=== PATIENT | male | born 1940 | race African-American/Black ===

== ENCOUNTER 2018-02-08 14:29 | Emergency (ER) | payer OTHER ==
[2018-02-08 14:49] VITALS: BMI 29.2
--- NOTE | 2018-02-08 14:51 | PDOC ---
Rapid Medical Evaluation Chief Complaint: Edema Time Seen by Provider: 02/08/18 14:45 Medical Evaluation: Allergies Allergy/AdvReac Type Severity Reaction Status Date / Time No Known Allergies Allergy Verified 02/08/18 14:44 02/08/18 14:46 Pt presents with one week of L lower leg swelling. States that the back of the leg hurts and the leg is numb. Denies recent travel, hx of prostate cancer. Exam: Pt ambulatory with cane. AAOx3 breathing easily. L leg grossly swollen with 3+ non-pitting edema to the knee. Orders: Labs, Duplex venous Pt. to proceed to ED for further eval PCP: Dr. Santos Discharge Disposition - Referrals Referrals: Laurence Santos MD [Primary Care Provider] - - Patient Instructions - Post Discharge Activity
[2018-02-08 15:49] LABS: BASO % 1.3 % (0-2.0); EOS % 3.9 % (0-4.5); HEMOGLOBIN 12.4 GM/dL (11.7-16.9); MCH 25.7 pg (25.7-33.7); MCHC 31.8 g/dl (32.0-35.9); MEAN PLT VOLUME 9.6 fl (7.5-11.1); MONO % 12.1 % (3.8-10.2); NEUT % 58.7 % (42.8-82.8); PLATELET COUNT 332 K/MM3 (134-434); RBC 4.82 M/mm3 (4.00-5.60); RDW 16.7 % (11.9-15.9); WHITE BLOOD COUNT 4.2 K/mm3 (4.0-10.0)
[2018-02-08 16:05] LABS: INR 1.09 (0.82-1.09); PROTHROMBIN TIME (PATIENT) 12.3 SEC (9.7-13.0)
[2018-02-08 16:27] LABS: ALBUMIN 3.8 g/dl (3.4-5.0); ANION GAP 6 (8-16); BILIRUBIN,TOTAL 0.5 mg/dL (0.2-1.0); BLOOD UREA NITROGEN 20 mg/dL (7-18); CALCIUM 9.1 mg/dL (8.5-10.1); CHLORIDE 104 mmol/L (98-107); CO2 29 mmol/L (21-32); CREATININE 1.1 mg/dL (0.7-1.3); GLUCOSE,RANDOM 103 mg/dL (74-106); POTASSIUM 4.3 mmol/L (3.5-5.1); SGOT/AST 19 U/L (15-37); SGPT/ALT 19 U/L (12-78); SODIUM 139 mmol/L (136-145)
[2018-02-08 16:29] LABS: ALK PHOS 82 U/L (45-117); N-TERMINAL BNP 288.94 pg/ml (5-450)
--- NOTE | 2018-02-08 16:31 | PDOC ---
History of Present Illness - General Chief Complaint: Edema Stated Complaint: LEFT FOOT PAIN Time Seen by Provider: 02/08/18 14:45 History Source: Patient Exam Limitations: No Limitations - History of Present Illness Initial Comments: 02/08/18 16:30 Patient is a 77M with history of blindness, elevated PSA (but no confirmed Prostate cancer), HTN, HLD, and DM here today complaining of left leg swelling that started two weeks ago. He denies trauma, fevers, chills, nausea, vomiting, chest pain and shortness of breath. Dr Santos, his pcp was contacted, as patient 's son said that he had prostate cancer, but per Dr Santos does not have any confirmed cancerous source. Past History - Past Medical History Allergies/Adverse Reactions: Allergies Allergy/AdvReac Type Severity Reaction Status Date / Time No Known Allergies Allergy Verified 02/08/18 14:44 Home Medications: Ambulatory Orders Labetalol HCl 200 mg PO BID 04/01/12 Simvastatin 20 mg PO DAILY 04/01/12 Amlodipine Besylate [Norvasc -] 10 mg PO DAILY #0 tablet 04/06/12 Hydralazine HCl 100 mg PO BID #0 tablet 04/06/12 Aspirin [ASA -] 81 mg PO DAILY 02/08/18 Glipizide 5 mg PO BID 02/08/18 Metformin HCl [Glucophage] 500 mg PO BID 02/08/18 Cancer: (Prostate CA) CVA: (2007) COPD: No DVT: No Diabetes: Yes HTN: Yes Hypercholesterolemia: Yes - Suicide/Smoking/Psychosocial Hx Smoking Status: No Smoking History: Never smoked Have you smoked in the past 12 months: No Number of Cigarettes Smoked Daily: 0 Information on smoking cessation initiated: No Hx Alcohol Use: No Drug/Substance Use Hx: No Substance Use Type: None Review of Systems - Review of Systems Comments:: 02/08/18 16:35 GENERAL/CONSTITUTIONAL: No fever or chills. No weakness. HEAD, EYES, EARS, NOSE AND THROAT: No change in vision. No ear pain or discharge. No sore throat. CARDIOVASCULAR: No chest pain or shortness of breath RESPIRATORY: No cough, wheezing, or hemoptysis. GASTROINTESTINAL: No nausea, vomiting, diarrhea or constipation. GENITOURINARY: No dysuria, frequency, or change in urination. MUSCULOSKELETAL: +L leg edema. No neck or back pain. SKIN: No rash NEUROLOGIC: No headache, vertigo, loss of consciousness, or change in strength/ sensation. ENDOCRINE: No increased thirst. No abnormal weight change HEMATOLOGIC/LYMPHATIC: No anemia, easy bleeding, or history of blood clots. ALLERGIC/IMMUNOLOGIC: No hives or skin allergy. *Physical Exam - Vital Signs Last Vital Signs Temp Pulse Resp BP Pulse Ox 98.3 F 74 16 183/92 99 02/08/18 14:45 02/08/18 14:45 02/08/18 14:45 02/08/18 14:45 02/08/18 14:45 - Physical Exam Comments: 02/08/18 16:34 GENERAL: Awake, alert, and fully oriented, in no acute distress HEAD: No signs of trauma, normocephalic, atraumatic EYES: PERRLA, EOMI, sclera anicteric, conjunctiva clear ENT: Auricles normal inspection, hearing grossly normal, nares patent, oropharynx clear without exudates. Moist mucosa NECK: Normal ROM, supple, no lymphadenopathy, JVD, or masses LUNGS: No distress, speaks full sentences, clear to auscultation bilaterally HEART: Regular rate and rhythm, normal S1 and S2, no murmurs, rubs or gallops, peripheral pulses normal and equal bilaterally. ABDOMEN: Soft, nontender, normoactive bowel sounds. No guarding, no rebound. No masses EXTREMITIES: Normal inspection, Normal range of motion, 3+ pitting edema in left extremity. No clubbing or cyanosis. NEUROLOGICAL: Cranial nerves II through XII grossly intact. Normal speech, no focal sensorimotor deficits SKIN: Warm, Dry, normal turgor, no rashes or lesions noted. ED Treatment Course - LABORATORY CBC & Chemistry Diagram: 02/08/18 15:42 02/08/18 15:42 - ADDITIONAL ORDERS Additional order review: Laboratory Results 02/08/18 15:42 PT with INR 12.30 INR 1.09 02/08/18 15:42 RBC 4.82 MCV 81.0 MCHC 31.8 L RDW 16.7 H MPV 9.6 D Neutrophils % 58.7 D Lymphocytes % 24.0 D Monocytes % 12.1 H Eosinophils % 3.9 D Basophils % 1.3 D Medical Decision Making - Medical Decision Making 02/08/18 16:36 Patient is 77M here today with left leg swelling. Very likely to be DVT. No complaints of chest pain or shortness of breath. Normal vital signs. Will evaluate with basic labs, cxr, ekg. Patient has significant cancer risk as reason for provocation of DVT. 02/08/18 16:59 DVT US negative. Labs wnl. Will discharge home with instructions to follow up in 3-4 days for second DVT study. *DC/Admit/Observation/Transfer Diagnosis at time of Disposition: Left leg swelling - Discharge Dispostion Disposition: HOME Condition at time of disposition: Good Decision to Admit order: No - Referrals Referrals: Laurence Santos MD [Primary Care Provider] - - Patient Instructions Additional Instructions: You were seen today in the ED for leg swelling and evaluated for a blood clot. We did not find a blood clot at this time. Please return to the ED in 3-4 days to have a repeat ultrasound. Please follow up with your primary care physician in the next week. - Post Discharge Activity
[2018-02-08 17:24] VITALS: BP 169/90; PULSE 72; TEMP 98.7
== END 2018-02-08 17:24 | disposition home or self-care (01) ==
LOC: JER 14:29
DX: R60.0 Localized edema (principal); I10 Essential (primary) hypertension; E78.00 Pure hypercholesterolemia, unspecified; E11.9 Type 2 diabetes mellitus without complications; Z79.84 Long term (current) use of oral hypoglycemic drugs; H54.7 Unspecified visual loss; R97.20 Elevated prostate specific antigen [PSA]; Z79.82 Long term (current) use of aspirin; Z86.73 Personal history of transient ischemic attack (TIA), and cerebral infarction without residual deficits
CPT/HCPCS: 36415; 80053; 83880; 85025; 85610; 93971-TC; 99283-25

== ENCOUNTER 2018-02-14 08:59 | Observation (INO) | payer OTHER ==
[2018-02-14 10:22] LABS: BASO % 0.5 % (0-2.0); EOS % 0.6 % (0-4.5); HEMATOCRIT 38.6 % (35.4-49); HEMOGLOBIN 12.4 GM/dL (11.7-16.9); LYMPH % 9.1 % (8-40); MCH 25.8 pg (25.7-33.7); MCHC 32.2 g/dl (32.0-35.9); MEAN PLT VOLUME 9.6 fl (7.5-11.1); NEUT % 81.8 % (42.8-82.8); PLATELET COUNT 232 K/MM3 (134-434); RBC 4.82 M/mm3 (4.00-5.60)
--- NOTE | 2018-02-14 10:43 | PDOC ---
Attending Attestation - HPI HPI: 02/14/18 10:43 The patient is a 77 year old male with a significant PMH of blindness, prostate ca(20 years), hypertension, hyperlipidemia, and DM who presents to the emergency department with significant left leg swelling for 2 weeks. The patient 's reports that the patient was recently seen in the ED about 1 week ago for similar complaints. The patient reports that when he was seen in the ED prior his leg swelling was down at his feet. Since then, the patient reports that the swelling has spread up his left leg to his groin. The patient's reports that the patient had difficulty walking out of the house this morning and had to be brought in by EMS. the patient denies any numbness, weakness or tingling sensation. He denies any fever, chills, nausea, vomit, diarrhea, constipation and urinary symptoms. He denies any chest pain, shortness of breath , headache and dizziness. The patient denies any other complaints. PCP: Dr. Santos Documentation prepared by Laura Mckeon, acting as medical services assistant for Taylor Nelson MD. - Physicial Exam PE: 02/14/18 10:45 GENERAL: Awake, alert, and fully oriented, in no acute distress HEAD: No signs of trauma EYES: PERRLA, EOMI, sclera anicteric, conjunctiva clear ENT: Auricles normal inspection, hearing grossly normal, nares patent, oropharynx clear without exudates. Moist mucosa NECK: Normal ROM, supple, no lymphadenopathy, JVD, or masses LUNGS: Breath sounds equal, clear to auscultation bilaterally. No wheezes, and no crackles HEART: Regular rate and rhythm, normal S1 and S2, no murmurs, rubs or gallops ABDOMEN: Soft, nontender, normoactive bowel sounds. No guarding, no rebound. No masses EXTREMITIES: (+)left lower extremity has 1+ pitting edema to left thigh with erythema and warmth. 2+ dp pulses bilaterally. Normal range of motion, no edema. No clubbing or cyanosis. No cords, erythema, or tenderness NEUROLOGICAL: Cranial nerves II through XII grossly intact. Normal speech, normal gait SKIN: Warm, Dry, normal turgor, no rashes or lesions noted. <Laura Mckeon - Last Filed: 02/14/18 10:43> - Resident Resident Name: Lauri Davis - ED Attending Attestation I have performed the following: I have examined & evaluated the patient, The case was reviewed & discussed with the resident, I agree w/resident's findings & plan, Exceptions are as noted - Medical Decision Making 02/14/18 12:11 77 yo male h/o prostatic enlargement, cancer left leg swelling x 2 weeks. negative doppler 1 week ago here with persistant swellling. no f/c no cp no sob. no h/o pe or dvt. differential: dvt that propogated from calf vein dvt, lymphatic enlargement , cellulitis, plan labs doppler. plan ct a/p to evalute prostate, possible enlargment , mets or node involvement. will d/w dr nichols us rads positive for extensive DVT left leg. cecilia treat with lovenox or heparin. d/w simone, told to admit to hospitalist. 02/14/18 14:03 d/w pt family. daughter concerned. pt unable to walk due to pain. has disability of blindness. will observe overnight for anticoagulation pt eval and social work / case reviewer involvement for safe discharge. social work paged awaiting call back <Taylor Nelson - Last Filed: 02/14/18 14:04>
[2018-02-14 10:50] LABS: ALBUMIN 3.4 g/dl (3.4-5.0); ANION GAP 9 (8-16); BILIRUBIN,TOTAL 0.9 mg/dL (0.2-1.0); BLOOD UREA NITROGEN 27 mg/dL (7-18); CALCIUM 8.8 mg/dL (8.5-10.1); CHLORIDE 103 mmol/L (98-107); CO2 26 mmol/L (21-32); CREATININE 1.3 mg/dL (0.7-1.3); GLUCOSE,RANDOM 112 mg/dL (74-106); SGPT/ALT 19 U/L (12-78); SODIUM 138 mmol/L (136-145)
[2018-02-14 10:52] LABS: ALK PHOS 72 U/L (45-117)
[2018-02-14 11:06] LABS: POTASSIUM 4.9 mmol/L (3.5-5.1); SGOT/AST 36 U/L (15-37)
[2018-02-14] MEDS ORDERED: ENOXAPARIN NA (PORCINE) 80 MG/0.8 ML DISP.SYRIN SQ ONE ×2 (14:00→14:11)
[2018-02-14] MEDS ORDERED: ACETAMINOPHEN 1000 MG/100 ML VIAL (NON FORMULARY) IVPB ONE (14:01)
[2018-02-14] MEDS ORDERED: ACETAMINOPHEN INJECTION 100 ML IVPB ONE (14:11)
--- NOTE | 2018-02-14 14:42 | HP ---
Admitting History and Physical - Admission Chief Complaint: LLE swelling and pain History of Present Illness: This is a 77 year old male with pmhx of HTN, HLD, DM II, prostate ca (~20 years ago), blindness d/t glaucoma presents to the ED with worsening left lower ext swelling. One week ago pt presented to the ED for same complaints, Duplex was negative at that time. Today, groin tenderness and swelling down his leg with unstable gait prompted to call EMS. The patient denies sob, chest pain, fever, chills, difficulty urinating, or bowel movements. He walks with a cane, refuses to go to a long term. The results of his CTAP regarding metastases likely from his prostate ca, malignancy work up biopsy and treatment, pt declines. History Source: Patient, Family Member Limitations to Obtaining History: No Limitations - Past Medical History Cardiovascular: Yes: HTN, Hyperlipdemia Heme/Onc: Yes: Cancer (prostate +20 years) Endocrine: Yes: Diabetes Mellitus - Smoking History Smoking history: Never smoked Have you smoked in the past 12 months: No Aproximately how many cigarettes per day: 0 - Alcohol/Substance Use Hx Alcohol Use: No History of Substance Use: reports: None - Social History Usual Living Arrangement: Yes: With Spouse Occupation: retired cabinate maker History of Recent Travel: No Home Medications - Allergies Allergies/Adverse Reactions: Allergies Allergy/AdvReac Type Severity Reaction Status Date / Time No Known Allergies Allergy Verified 02/14/18 09:00 - Home Medications Home Medications: Ambulatory Orders Labetalol HCl 200 mg PO BID 04/01/12 Simvastatin 20 mg PO DAILY 04/01/12 Amlodipine Besylate [Norvasc -] 10 mg PO DAILY #0 tablet 04/06/12 Hydralazine HCl 100 mg PO BID #0 tablet 04/06/12 Aspirin [ASA -] 81 mg PO DAILY 02/08/18 Glipizide 5 mg PO BID 02/08/18 Metformin HCl [Glucophage] 500 mg PO BID 02/08/18 Review of Systems - Review of Systems Constitutional: reports: No Symptoms Eyes: reports: Other (blind) HENT: reports: No Symptoms Neck: reports: No Symptoms Cardiovascular: reports: No Symptoms Respiratory: reports: No Symptoms Gastrointestinal: reports: No Symptoms Genitourinary: reports: No Symptoms Musculoskeletal: reports: Extremity Pain (left) Integumentary: reports: No Symptoms Neurological: reports: Unsteady Gait Endocrine: reports: No Symptoms Hematology/Lymphatic: reports: No Symptoms Psychiatric: reports: No Symptoms Physical Examination Vital Signs: Vital Signs Temperature 99.6 F 02/14/18 13:55 Pulse Rate 90 02/14/18 13:55 Respiratory Rate 18 02/14/18 13:55 Blood Pressure 131/70 02/14/18 13:55 O2 Sat by Pulse Oximetry (%) 98 02/14/18 13:55 Constitutional: Yes: Calm Eyes: Yes: Other (blind) HENT: Yes: WNL Neck: Yes: WNL Cardiovascular: Yes: Regular Rate and Rhythm, S1, S2 Respiratory: Yes: Regular, CTA Bilaterally Gastrointestinal: Yes: Normal Bowel Sounds, Soft Extremities: Yes: Other (lle swelling, calf tenerness, tight, no erythema, mild warm) Edema: Yes Edema: LLE: 2+ Neurological: Yes: Alert, Oriented, Cran Nerves II-XII Intact Psychiatric: Yes: Alert, Oriented Labs: CBC, BMP 02/14/18 10:13 02/14/18 10:13 Imaging - Results Cat Scan: Report Reviewed Problem List - Problems (1) DVT (deep venous thrombosis) Code(s): I82.409 - ACUTE EMBOLISM AND THOMBOS UNSP DEEP VN UNSP LOWER EXTREMITY (2) HTN (hypertension) Code(s): I10 - ESSENTIAL (PRIMARY) HYPERTENSION (3) Diabetes mellitus Code(s): E11.9 - TYPE 2 DIABETES MELLITUS WITHOUT COMPLICATIONS (4) Blind in both eyes Code(s): H54.3 - UNQUALIFIED VISUAL LOSS, BOTH EYES (5) HLD (hyperlipidemia) Code(s): E78.5 - HYPERLIPIDEMIA, UNSPECIFIED (6) Left leg swelling Code(s): M79.89 - OTHER SPECIFIED SOFT TISSUE DISORDERS Assessment/Plan Assessment: 77 year old male presented with worsening left lower ext swelling Plan: 1. Acute extensive LLE DVT - Left common femoral - Start lovenox 80mg BID - PT eval - Hematology, vascular consulted, possible for eliquis? 2. hx of prostate ca with metatases - CTAP shows extensive retroperitoneal lymphadenopathy, b/l adrenal nodules, pelvic adenopathy - Pt declines further work up/treatment - Hematology consulted for AC re DVT 3. HTN - Norvasc, labetalol, hydralazine 4. DM II - ISS, BGM ACHS 5. HLD - Statin Visit type - Emergency Visit Emergency Visit: Yes Care time: The patient presented to the Emergency Department on the above date and was hospitalized for further evaluation of their emergent condition. - New Patient This patient is new to me today: Yes Date on this admission: 02/14/18 - Critical Care Critical Care patient: No Hospitalist Screening - Colonoscopy Questionnaire Colonoscopy Questionnaire: Colonoscopy Questionnaire - Patient: 50 - 75 years old and never had a screening colonoscopy: Unknown History of colon or rectal polyps, or CA: Unknown History of IBD, Crohn's disease or UC: Unknown History of abdominal radiation therapy as a child: Unknown - Relative: 1 with colon or rectal CA, or polyps at age 60 or younger: Unknown Colon or rectal CA diagnosed at age 45 or younger: Unknown Multiple relatives with colon or rectal CA: Unknown - Outcome: Screening Result: Negative Screen
--- NOTE | 2018-02-14 14:52 | PDOC ---
History of Present Illness - General Chief Complaint: Edema Stated Complaint: LT LEG SWELLING (PCP SENT) Time Seen by Provider: 02/14/18 09:49 History Source: Patient, Family (daughter ) Exam Limitations: No Limitations - History of Present Illness Initial Comments: 02/14/18 14:42 77 y/o male with a PMH of HTN, hypercholesteralemia, diabetes and prostatic ca ( 20+ years, not treated) presents to the ED for a 2 week history of LLE swelling and pain. Patient states the swelling and pain have progressively gotten worse and now affects the entire LLE. Pt came to the ED on February 08 for the same complaint. Doppler was negative at the time. Pt spoke with his PCP, Dr. Alvarez, over the phone today and was advised to come back to the hospital for further workup. Patient denies SOB, CP, fevers/chills, abdominal pain, changes in bowel or bladder habits. Timing/Duration: other (2 weeks) Severity: moderate Associated Symptoms: reports: denies symptoms. denies: chest pain, cough, fever /chills, shortness of breath Past History - Past Medical History Allergies/Adverse Reactions: Allergies Allergy/AdvReac Type Severity Reaction Status Date / Time No Known Allergies Allergy Verified 02/14/18 09:00 Home Medications: Ambulatory Orders Labetalol HCl 200 mg PO BID 04/01/12 Simvastatin 20 mg PO DAILY 04/01/12 Amlodipine Besylate [Norvasc -] 10 mg PO DAILY #0 tablet 04/06/12 Hydralazine HCl 100 mg PO BID #0 tablet 04/06/12 Aspirin [ASA -] 81 mg PO DAILY 02/08/18 Glipizide 5 mg PO BID 02/08/18 Metformin HCl [Glucophage] 500 mg PO BID 02/08/18 Cancer: (Prostate CA) CVA: (2007) COPD: No DVT: No Diabetes: Yes HTN: Yes Hypercholesterolemia: Yes - Immunization History Immunization Up to Date: Yes - Suicide/Smoking/Psychosocial Hx Smoking Status: No Smoking History: Never smoked Have you smoked in the past 12 months: No Number of Cigarettes Smoked Daily: 0 Hx Alcohol Use: No Drug/Substance Use Hx: No Substance Use Type: None Review of Systems - Review of Systems Comments:: 02/14/18 14:53 General: No fevers or chills or weakness Cardio: no chest pain or SOB Resp: respiratory distress, No cough, wheezing, or hemoptysis Gastro: No nausea, vomiting, diarrhea or constipation Genitourinary: no dysuria, frequency or change in urination Skin: no rash Neuro: no SHAH, LOC, or changes in strength or sensation Irineo/Lymph: no anemia, easy bleeding or history of blood clots *Physical Exam - Vital Signs Last Vital Signs Temp Pulse Resp BP Pulse Ox 99.6 F 90 18 131/70 98 02/14/18 13:55 02/14/18 13:55 02/14/18 13:55 02/14/18 13:55 02/14/18 13:55 - Physical Exam Comments: 02/14/18 15:03 General: Awake, alert and fully oriented, no acute distress Neuro: CN 2-12 intact Normal speech Head: No signs of trauma Lungs: Breath sounds equal, clear to auscultation bilaterally Heart: regular rate and rhythm, normal S1 and S2, no murmurs Abdomen: Soft, non tender, normoactive sound. No masses, guarding, rebound or rigidity Extremities: Diffuse LLE pitting edema. Tender to palpation. doralis pedis pulse palpated bilaterally Skin: No erythema or warmth unilaterally ED Treatment Course - LABORATORY CBC & Chemistry Diagram: 02/14/18 10:13 02/14/18 10:13 - ADDITIONAL ORDERS Additional order review: Laboratory Results 02/14/18 10:13 Sodium 138 Potassium 4.9 Chloride 103 Carbon Dioxide 26 Anion Gap 9 BUN 27 H Creatinine 1.3 Creat Clearance w eGFR 53.39 Random Glucose 112 H Calcium 8.8 Total Bilirubin 0.9 AST 36 D ALT 19 Alkaline Phosphatase 72 D B-Natriuretic Peptide 278.20 Total Protein 8.0 Albumin 3.4 02/14/18 10:13 RBC 4.82 MCV 80.0 MCHC 32.2 RDW 16.0 H MPV 9.6 Neutrophils % 81.8 D Lymphocytes % 9.1 D Monocytes % 8.0 Eosinophils % 0.6 D Basophils % 0.5 - RADIOLOGY Radiology Studies Ordered: Category Date Time Status ABDOMEN & PELVIS CT W/O CONTR [CT] Stat CT Scan 02/14/18 10:41 Completed - Medications Given in the ED: ED Medications Discontinued Medications Generic Name Dose Route Start Last Admin Trade Name Freq PRN Reason Stop Dose Admin Acetaminophen 1,000 mg 02/14/18 14:01 02/14/18 14:12 Ofirmev Injection - IVPB 02/14/18 14:02 1,000 mg ONCE ONE Administration Enoxaparin Sodium 80 mg 02/14/18 14:00 02/14/18 14:12 Lovenox - SQ 02/14/18 14:01 80 mg ONCE ONE Administration - Consult/PCP Time Called: 13:00 Medical Decision Making - Medical Decision Making 02/14/18 16:04 77 year old male presents with LLE pain and swelling for a 2 week duration. Doppler shows extensive DVT from the popliteal to the common femoral vein. Denies f/c/n/v SOB, CP. No prior history of PE or DVT. Spoke with Dr. Alvarez and agrees to admit pt to Hospitalist. Lovenox treatment indefinitely. Discussed pelvic and abdominal CT with patient, understands that it most likely points to metastasis of untreated prostatic CA. At the moment he is denying treatment options but spoke with Dr. Clinton from oncology over the phone who agrees to see the patient. *DC/Admit/Observation/Transfer Diagnosis at time of Disposition: DVT (deep venous thrombosis) Qualifiers: DVT location: lower extremity Affected thrombotic vein of extremity: femoral Chronicity: acute Laterality: left Qualified Code(s): I82.412 - Acute embolism and thrombosis of left femoral vein - Discharge Dispostion Condition at time of disposition: Good Decision to Admit order: Yes Decision to Admit order Date/Time: 02/14/18 17:01 77 y/o male found to have extensive LLE DVT. - Referrals - Patient Instructions - Post Discharge Activity
[2018-02-14] MEDS: INSULIN SLIDING SCALE (NOVOLOG) 1 VIAL SQ SCH ×2 (16:34→21:37)
[2018-02-14 18:49] VITALS: BMI 29.6
--- NOTE | 2018-02-14 20:19 | CONSULT ---
<Winifred Cowan - Last Filed: 02/14/18 20:26> - Consultation REQUESTING PROVIDER: CONSULT REQUEST: We have been asked to surgically evaluate this patient for Left lower extremity DVT PCP:Dayami Pimentel HISTORY OF PRESENT ILLNESS: The patient is a 77 yo male who returned to the ER today for an increase in left leg pain and swelling. He was seen on 02/08/2018 at [facility] and had a negative DVT study. His family brought him back for further evaluation as recommended. He has a history of prostate cancer 20 years ago and received limited treatment because he didn't like the therapy. The patient denies any SOB, CP today. He thinks that his leg feels less "tight" swollen since admission. No parasthesia and the throbbing in his leg has subsided. PMHx: HTN, Diabetes PSHx: denies Home Medications Medication Instructions Recorded Labetalol HCl 200 mg PO BID 04/01/12 Simvastatin 20 mg PO DAILY 04/01/12 Amlodipine Besylate [Norvasc -] 10 mg PO DAILY #0 tablet 04/06/12 Hydralazine HCl 100 mg PO BID #0 tablet 04/06/12 Aspirin [ASA -] 81 mg PO DAILY 02/08/18 Glipizide 5 mg PO BID 02/08/18 Metformin HCl [Glucophage] 500 mg PO BID 02/08/18 Allergies Allergy/AdvReac Type Severity Reaction Status Date / Time No Known Allergies Allergy Verified 02/14/18 09:00 REVIEW OF SYSTEMS: CONSTITUTIONAL: Absent: fever, chills CARDIOVASCULAR: Absent: chest pain, syncope, palpitations Present:peripheral edema RESPIRATORY: Absent: cough, shortness of breath, dyspnea with exertion GASTROINTESTINAL: Absent: abdominal pain, abdominal distension, nausea, vomiting No history of colonoscopy-denies bloody bowel movments GENITOURINARY: Absent: dysuria, hematuria, flank pain SKIN: Absent: ulcer to lower ext MUSCULOSKELETAL: Absent: myalgia, arthralgia HEMATOLOGIC/IMMUNOLOGIC: Absent: easy bleeding, easy bruising NEUROLOGIC: Absent: headache, focal weakness, paresthesias, dizziness, unsteady gait, seizure, mental status changes, bladder or bowel incontinence PSYCHIATRIC: Absent: anxiety, depression, suicidal or homicidal ideation, hallucinations. PHYSICAL EXAM: GENERAL: Awake, alert, and fully oriented, in no acute distress. HEAD: Normal with no signs of trauma. ABDOMEN: Soft, nontender, not distended MUSCULOSKELETAL: Normal ROM at all joints. No bony deformities or tenderness. LOWER EXTREMITIES: 2+ pulses, warm, well-perfused. Left leg with calf tenderness and +2 pitting edema from the foot to his thigh/soft. NEUROLOGICAL: Normal speech, gait not observed. PSYCH: Cooperative. Good eye contact. Appropriate mood and affect. SKIN: Warm, dry, normal turgor, lesions noted to his lower ext Vital Signs Temperature 98.5 F 02/14/18 18:42 Pulse Rate 76 02/14/18 18:42 Respiratory Rate 18 02/14/18 19:00 Blood Pressure 138/86 02/14/18 18:42 O2 Sat by Pulse Oximetry (%) 98 02/14/18 19:00 Lab Results WBC 9.0 K/mm3 (4.0-10.0) 02/14/18 10:13 RBC 4.82 M/mm3 (4.00-5.60) 02/14/18 10:13 Hgb 12.4 GM/dL (11.7-16.9) 02/14/18 10:13 Hct 38.6 % (35.4-49) 02/14/18 10:13 MCV 80.0 fl (80-96) 02/14/18 10:13 MCHC 32.2 g/dl (32.0-35.9) 02/14/18 10:13 RDW 16.0 % (11.9-15.9) H 02/14/18 10:13 Plt Count 232 K/MM3 (134-434) D 02/14/18 10:13 Sodium 138 mmol/L (136-145) 02/14/18 10:13 Potassium 4.9 mmol/L (3.5-5.1) 02/14/18 10:13 Chloride 103 mmol/L (98-107) 02/14/18 10:13 Carbon Dioxide 26 mmol/L (21-32) 02/14/18 10:13 Anion Gap 9 (8-16) 02/14/18 10:13 BUN 27 mg/dL (7-18) H 02/14/18 10:13 Creatinine 1.3 mg/dL (0.7-1.3) 02/14/18 10:13 Random Glucose 112 mg/dL (74-106) H 02/14/18 10:13 Calcium 8.8 mg/dL (8.5-10.1) 02/14/18 10:13 DVT 02/08-No evidenced of clot DVT 02/14-clot in the Left CFV, popliteal and GSV CT ABD/Pevis 02/14: Retroperitoneal lymphadenpathy, pelivc LAD causing right hydronephrosis Problem List - Problems (1) DVT (deep venous thrombosis) Assessment/Plan: The patient is a 77 yo male with a history of prostate cancer and evidence of metastatic disease on CT scan. Now with acute LLE DVT. The medical team has begun his DVT treatment with lovenox 80mg BID, recommend to transition to oral AC as per hem/onc and his medical team. Continue lovenox therapy if further workup regarding his metastatic disease is agreeded upon by the patient and advised by Hem/Onc. D/w Dr. Bunn and he agress with the above plan. There is no need for surgical intervention/thrombolysis at this time unless he is unable to tolerate anticoagulation or swelling symptoms progress. Elevate his Left lower extremity at all times to decrease swelling. Code(s): I82.409 - ACUTE EMBOLISM AND THOMBOS UNSP DEEP VN UNSP LOWER EXTREMITY Qualifiers: DVT location: lower extremity Affected thrombotic vein of extremity: femoral Chronicity: acute Laterality: left Qualified Code(s): I82.412 - Acute embolism and thrombosis of left femoral vein <Campos Bunn - Last Filed: 02/21/18 08:09> - Consultation REQUESTING PROVIDER: CONSULT REQUEST: We have been asked to surgically evaluate this patient for ( specify). PCP:Miah Grimm NP HISTORY OF PRESENT ILLNESS: PMHx: PSHx: Home Medications Medication Instructions Recorded Labetalol HCl 200 mg PO BID 04/01/12 Simvastatin 20 mg PO DAILY 04/01/12 Amlodipine Besylate [Norvasc -] 10 mg PO DAILY #0 tablet 04/06/12 Hydralazine HCl 100 mg PO BID #0 tablet 04/06/12 Glipizide 5 mg PO BID 02/08/18 Metformin HCl [Glucophage] 500 mg PO BID 02/08/18 Apixaban [Eliquis -] 5 mg PO BID #60 tablet 02/15/18 Apixaban [Eliquis -] 5 mg PO BID #60 tablet 02/17/18 Docusate Sodium [Colace -] 100 mg PO TID capsule 02/17/18 Allergies Allergy/AdvReac Type Severity Reaction Status Date / Time No Known Allergies Allergy Verified 02/14/18 09:00 REVIEW OF SYSTEMS: CONSTITUTIONAL: Absent: fever, chills, diaphoresis, generalized weakness, malaise, loss of appetite, weight change CARDIOVASCULAR: Absent: chest pain, syncope, palpitations, irregular heart rate, lightheadedness , peripheral edema RESPIRATORY: Absent: cough, shortness of breath, dyspnea with exertion, wheezing, stridor, hemoptysis GASTROINTESTINAL: Absent: abdominal pain, abdominal distension, nausea, vomiting, diarrhea, constipation, melena, hematochezia GENITOURINARY: Absent: dysuria, frequency, urgency, hesitancy, hematuria, flank pain, genital pain MUSCULOSKELETAL: Absent: myalgia, arthralgia, joint swelling, back pain, neck pain SKIN: Absent: rash, itching, pallor HEMATOLOGIC/IMMUNOLOGIC: Absent: easy bleeding, easy bruising, lymphadenopathy NEUROLOGIC: Absent: headache, focal weakness, paresthesias, dizziness, unsteady gait, seizure, mental status changes, bladder or bowel incontinence PSYCHIATRIC: Absent: anxiety, depression, suicidal or homicidal ideation, hallucinations. PHYSICAL EXAM: GENERAL: Awake, alert, and fully oriented, in no acute distress. HEAD: Normal with no signs of trauma. EYES: PERRL, sclera anicteric, conjunctiva clear. NECK: Normal ROM, supple without lymphadenopathy, JVD, or masses. LUNGS: Clear to auscultation bilat anteriorly. No wheezes, and no crackles. No accessory muscle use. HEART: Regular rate and rhythm. No murmurs ABDOMEN: Soft, nontender, not distended, normoactive bowel sounds, no guarding, no rebound, no masses. No organomegaly. MUSCULOSKELETAL: Normal ROM at all joints. No bony deformities or tenderness. No CVA tenderness. UPPER EXTREMITIES: 2+ pulses, warm, well-perfused. No cyanosis. Cap refill <2 seconds. No peripheral edema. LOWER EXTREMITIES: 2+ pulses, warm, well-perfused. No calf tenderness. No peripheral edema. NEUROLOGICAL: Normal speech, gait not observed. PSYCH: Cooperative. Good eye contact. Appropriate mood and affect. SKIN: Warm, dry, normal turgor, no rashes or lesions noted. Vital Signs Temperature 98.6 F 02/17/18 10:06 Pulse Rate 68 02/17/18 10:06 Respiratory Rate 20 02/17/18 10:06 Blood Pressure 157/86 02/17/18 10:06 O2 Sat by Pulse Oximetry (%) 97 02/17/18 03:00 Lab Results WBC 6.5 K/mm3 (4.0-10.0) 02/15/18 06:25 RBC 4.44 M/mm3 (4.00-5.60) 02/15/18 06:25 Hgb 11.5 GM/dL (11.7-16.9) L 02/15/18 06:25 Hct 35.2 % (35.4-49) L 02/15/18 06:25 MCV 79.3 fl (80-96) L 02/15/18 06:25 MCHC 32.6 g/dl (32.0-35.9) 02/15/18 06:25 RDW 16.2 % (11.9-15.9) H 02/15/18 06:25 Plt Count 214 K/MM3 (134-434) 02/15/18 06:25 Sodium 141 mmol/L (136-145) 02/15/18 06:25 Potassium 3.9 mmol/L (3.5-5.1) D 02/15/18 06:25 Chloride 106 mmol/L (98-107) 02/15/18 06:25 Carbon Dioxide 25 mmol/L (21-32) 02/15/18 06:25 Anion Gap 10 (8-16) 02/15/18 06:25 BUN 23 mg/dL (7-18) H 02/15/18 06:25 Creatinine 1.0 mg/dL (0.7-1.3) 02/15/18 06:25 Random Glucose 82 mg/dL (74-106) D 02/15/18 06:25 Calcium 8.4 mg/dL (8.5-10.1) L 02/15/18 06:25 Case discussed in detail. Plans for anticoagulation. No surgical intervention indicated at this time.
[2018-02-14] MEDS: hydrALAZINE HCL 50 MG TABLET (FP) PO SCH (21:37)
[2018-02-14] MEDS: ATORVASTATIN CA 10 MG TABLET (FP) PO SCH (21:37)
[2018-02-14] MEDS: LABETALOL HCL 200 MG TABLET (FP) PO SCH (21:37)
[2018-02-15] MEDS: ACETAMINOPHEN 325 MG TABLET (FP) PO PRN ×2 (02:19→19:32)
[2018-02-15] MEDS: INSULIN SLIDING SCALE (NOVOLOG) 1 VIAL SQ SCH ×4 (06:13→21:38)
[2018-02-15 07:21] LABS: BASO % 0.4 % (0-2.0); EOS % 0.6 % (0-4.5); HEMATOCRIT 35.2 % (35.4-49); HEMOGLOBIN 11.5 GM/dL (11.7-16.9); LYMPH % 13.8 % (8-40); MCH 25.9 pg (25.7-33.7); MCHC 32.6 g/dl (32.0-35.9); MEAN CELL VOLUME 79.3 fl (80-96); MEAN PLT VOLUME 9.9 fl (7.5-11.1); MONO % 12.2 % (3.8-10.2); PLATELET COUNT 214 K/MM3 (134-434); RBC 4.44 M/mm3 (4.00-5.60); RDW 16.2 % (11.9-15.9); WHITE BLOOD COUNT 6.5 K/mm3 (4.0-10.0)
[2018-02-15 08:02] LABS: CHLORIDE 106 mmol/L (98-107); POTASSIUM 3.9 mmol/L (3.5-5.1); SODIUM 141 mmol/L (136-145)
[2018-02-15 08:23] LABS: ALBUMIN 2.9 g/dl (3.4-5.0); ALK PHOS 58 U/L (45-117); ANION GAP 10 (8-16); BILIRUBIN,TOTAL 0.7 mg/dL (0.2-1.0); BLOOD UREA NITROGEN 23 mg/dL (7-18); CALCIUM 8.4 mg/dL (8.5-10.1); CO2 25 mmol/L (21-32); GLUCOSE,RANDOM 82 mg/dL (74-106); SGOT/AST 20 U/L (15-37); SGPT/ALT 13 U/L (12-78); TOT PROT 6.7 g/dl (6.4-8.2)
[2018-02-15] MEDS ORDERED: ENOXAPARIN NA (PORCINE) 80 MG/0.8 ML DISP.SYRIN SQ SCH ×2 (09:34→22:00)
[2018-02-15] MEDS: hydrALAZINE HCL 50 MG TABLET (FP) PO SCH ×2 (10:11→21:39)
[2018-02-15] MEDS: LABETALOL HCL 200 MG TABLET (FP) PO SCH ×2 (10:11→21:39)
[2018-02-15] MEDS: amLODIPine BESYLATE 10 MG TABLET (FP) PO SCH (10:11)
--- NOTE | 2018-02-15 10:18 | CONSULT ---
Consult Consult Specialty:: Medical Oncology -Hematology Referred by:: Dayami Pimentel Reason for Consultation:: Swelling L leg , Hx prostate cancer - History of Present Illness Chief Complaint: swelling L leg w pain at least X 1 week History of Present Illness: 77 y/o male w hx prostate cancer dx'd 1989 at [facility] w bx of prostate ; stage unknown but orchiectomy was offered (no records to see at this time ) but he was apparently started on an LH/RH monthly injection . Pt discontinued it after about 1 year due to hot flashes/weakness/impotence. Pt did not want get any oncologic intervention from that point on and essentially took alternative medications . He has occ prostatism symptoms but not severe , denies bone pain, abdominal pains, bleeding phenomena.Doppler ext showed extensive L leg DVT ; CT a/p showed RP and pelvic adenopathy , markedly enlarged prostate, b/l adrenal nodules. CBC nl ; CMP w creat 1.3 , total protein 8 ; LFT's nl, Ca++ nl. - Past Medical History Cardio/Vascular: Yes: HTN, Hyperlipdemia Endocrine: Yes: Diabetes Mellitus - Alcohol/Substance Use Hx Alcohol Use: No History of Substance Use: reports: None - Smoking History Smoking history: Never smoked Have you smoked in the past 12 months: No Aproximately how many cigarettes per day: 0 If you are a former smoker, when did you quit?: 50 years ago - Social History Occupation: retired cabinate maker History of Recent Travel: No Home Medications - Allergies Allergies/Adverse Reactions: Allergies Allergy/AdvReac Type Severity Reaction Status Date / Time No Known Allergies Allergy Verified 02/14/18 09:00 - Home Medications Home Medications: Ambulatory Orders Labetalol HCl 200 mg PO BID 04/01/12 Simvastatin 20 mg PO DAILY 04/01/12 Amlodipine Besylate [Norvasc -] 10 mg PO DAILY #0 tablet 04/06/12 Hydralazine HCl 100 mg PO BID #0 tablet 04/06/12 Aspirin [ASA -] 81 mg PO DAILY 02/08/18 Glipizide 5 mg PO BID 02/08/18 Metformin HCl [Glucophage] 500 mg PO BID 02/08/18 Review of Systems - Review of Systems Constitutional: reports: Weakness Eyes: reports: Other (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) HENT: reports: No Symptoms Neck: reports: No Symptoms Cardiovascular: reports: No Symptoms Respiratory: reports: No Symptoms Gastrointestinal: reports: Constipation Genitourinary: reports: Frequency Musculoskeletal: reports: No Symptoms Integumentary: reports: No Symptoms Neurological: reports: No Symptoms Endocrine: reports: No Symptoms Hematology/Lymphatic: reports: No Symptoms Psychiatric: reports: No Symptoms Physical Exam Vital Signs: Vital Signs Temperature 99.0 F 02/15/18 09:00 Pulse Rate 86 02/15/18 05:00 Respiratory Rate 20 02/15/18 09:00 Blood Pressure 137/86 02/15/18 09:00 O2 Sat by Pulse Oximetry (%) 98 02/15/18 01:13 Constitutional: Yes: Well Nourished, No Distress, Calm Eyes: Yes: WNL, Conjunctiva Clear, EOM Intact HENT: Yes: WNL, Atraumatic, Normocephalic. No: Drooling, Epistaxis, Hoarseness , Nasal Congestion, Pharyngeal Erythema, Rhinnorhea, Thrush, Tonsillar Exudate, Other Neck: Yes: WNL, Supple, Trachea Midline Cardiovascular: Yes: WNL, Regular Rate and Rhythm, Murmur Respiratory: Yes: WNL, Regular, CTA Bilaterally Gastrointestinal: Yes: WNL, Normal Bowel Sounds, Soft. No: Abdomen, Obese, Ascites, Distention, Hematemesis, Hemorrhoids, Hepatomegaly, Hernia, Hyperactive Bowel Sounds, Hypoactive Bowel Sounds, Melena, Palpable Mass, Pulsatile Mass, Rectal Bleeding, Splenomegaly, Tenderness, Tenderness, Epigastrium, Tenderness, Rebound, Vomiting, Other Breast(s): Yes: WNL Extremities: No: WNL, Amputation, Calf Tenderness, Cold, Cool, Cyanosis, Deformity, Delayed Capillary Refill, Erythema, External Rotation, Internal Rotation, Pallor, Shortened, Other Edema: Yes Edema: LLE: 2+ (warm .non-tender) Peripheral Pulses WNL: Yes Integumentary: Yes: WNL Neurological: Yes: WNL, Alert, Oriented Labs: CBC, BMP 02/15/18 06:25 02/15/18 06:25 Problem List - Problems (1) Prostate cancer Code(s): C61 - MALIGNANT NEOPLASM OF PROSTATE (2) Lymphadenopathy, retroperitoneal Code(s): R59.0 - LOCALIZED ENLARGED LYMPH NODES (3) Hyperproteinemia Code(s): E88.09 - OTH DISORDERS OF PLASMA-PROTEIN METABOLISM, NEC Assessment/Plan 77 y/o male w hx advanced prostate cancer 1989 , details not available yet, only Rx'd w hormonal Rx X 1 year, now w DVT L leg , RP/pelvic adenopathy /bl adrenal nodules which may all be c/w a metastatic prostate cancer but not definitive. Pt will need lifelong AC in view of an active cancer. Eliquis 5 mg BID acceptable option ; pt needs to monitored for this , eliseo for worsening hydronephrosis and acute renal failure ( has mild R hydro) . I had initial conversation w pt about establishing/ confirming the dx (since other neoplasms also possible) and potential systemic Rx's for prostate cancer . Pt seems very negative about Rx in general , and he seems competent , understands situation . I left my card and asked him to follow up in my office ([phone] [id number]) within 4 weeks. I would also like to do a serologic w/u for hyperproteinemia.
--- NOTE | 2018-02-15 12:54 | EKG ---
Test Reason : Blood Pressure : / mmHG Vent. Rate : 093 BPM Atrial Rate : 093 BPM P-R Int : 148 ms QRS Dur : 098 ms QT Int : 360 ms P-R-T Axes : 051 004 040 degrees QTc Int : 447 ms SINUS RHYTHM WITH FREQUENT PREMATURE VENTRICULAR COMPLEXES IN A PATTERN OF BIGEMINY POSSIBLE LEFT ATRIAL ENLARGEMENT NONSPECIFIC ST AND T WAVE ABNORMALITY ABNORMAL ECG Confirmed by MD STEVE, SUNIL ([id number]) on 02/15/2018 12:54:35 PM Referred By: ULYSSES BRANNON Confirmed By:SUNIL WILSON MD
--- NOTE | 2018-02-15 13:02 | EKG ---
Test Reason : Blood Pressure : / mmHG Vent. Rate : 090 BPM Atrial Rate : 090 BPM P-R Int : 156 ms QRS Dur : 098 ms QT Int : 376 ms P-R-T Axes : 035 -14 -08 degrees QTc Int : 459 ms SINUS RHYTHM WITH MARKED SINUS ARRHYTHMIA INFERIOR INFARCT , AGE UNDETERMINED ABNORMAL ECG Confirmed by MD STEVE, SUNIL ([id number]) on 02/15/2018 1:02:15 PM Referred By: Confirmed By:SUNIL WILSON MD
--- NOTE | 2018-02-15 15:44 | PN ---
Physical Exam: SUBJECTIVE: Patient seen and examined. He says his leg is better, he will keep an eye on it. Continues to be reluctant regarding medical care. EKG: sinus rhythm with pvcs OBJECTIVE: Vital Signs Period Temp Pulse Resp BP Sys/Garcia Pulse Ox Last 24 Hr 98.1 F-100.4 F 53-91 18-22 131-146/58-86 95-98 PE Neuro: alert, awake, blindness Pulm: CTAB CV: s1 s2 irregularly irregular Abd: s nt nd + bs Ext: LLE swelling, mild calf tenderness Laboratory Results - last 24 hr 02/15/18 02/15/18 02/15/18 06:25 06:25 12:03 WBC 6.5 RBC 4.44 Hgb 11.5 L Hct 35.2 L MCV 79.3 L MCH 25.9 MCHC 32.6 RDW 16.2 H Plt Count 214 MPV 9.9 Absolute Neuts (auto) 4.7 Neutrophils % 73.0 Lymphocytes % 13.8 D Monocytes % 12.2 H Eosinophils % 0.6 Basophils % 0.4 Nucleated RBC % 0 Sodium 141 Potassium 3.9 D Chloride 106 Carbon Dioxide 25 Anion Gap 10 BUN 23 H Creatinine 1.0 Creat Clearance w eGFR > 60 POC Glucometer 88 Random Glucose 82 D Calcium 8.4 L Total Bilirubin 0.7 AST 20 D ALT 13 D Alkaline Phosphatase 58 D Total Protein 6.7 Albumin 2.9 L Active Medications Generic Name Dose Route Start Last Admin Trade Name Freq PRN Reason Stop Dose Admin Acetaminophen 650 mg 02/14/18 15:19 02/15/18 02:19 Tylenol - PO 650 mg Q4H PRN Administration PAIN LEVEL 1 - 3 Amlodipine Besylate 10 mg 02/15/18 10:00 02/15/18 10:11 Norvasc - PO 10 mg DAILY MADELYN Administration Atorvastatin Calcium 10 mg 02/14/18 22:00 02/14/18 21:37 Lipitor - PO 10 mg HS MADELYN Administration Enoxaparin Sodium 80 mg 02/15/18 09:34 02/15/18 10:11 Lovenox - SQ 80 mg BID MADELYN Administration Hydralazine HCl 100 mg 02/14/18 22:00 02/15/18 10:11 Apresoline - PO 100 mg BID MADELYN Administration Insulin Aspart 1 vial 02/14/18 16:30 02/15/18 12:04 Novolog Vial Sliding Scale - SQ Not Given ACHS [facility] Protocol Labetalol HCl 200 mg 02/14/18 22:00 02/15/18 10:11 Normodyne - PO 200 mg BID MADELYN Administration Assessment: 77 year old male presented with worsening left lower ext swelling Plan: 1. Acute extensive LLE DVT - Left common femoral - Discussed with hematology, start Eliquis 5mg BID, instead of 10mg bid x7days - Will need outpt follow up q monthly - No invasive vascular intervention 2. x1 Positive blood cx - Awaiting speciation - Repeat cultures today - Low grade fever noted, however likely d/t DVT, pt does not appear infectious nor has any acute constitutional complaints 3. hx of prostate ca (1989) with metatases - CTAP shows extensive retroperitoneal lymphadenopathy, b/l adrenal nodules, pelvic adenopathy - Pt d/w hematology, he continues to decline further treatment, however per my conversation with daughter she is aware he needs to follow up every month to monitor kidney function and would need a change to eliquis dosing. Referral information given 4. HTN - Norvasc, labetalol, hydralazine - EKG reviewed, NSR with pvc/pac's d/w PCP Dr. Santos, no hx of A fib,PAF, however pt cont BB and now on AC 5. DM II - ISS, BGM ACHS 6. 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 - New Patient This patient is new to me today: No - Critical Care Critical Care patient: No
[2018-02-15] MEDS: APIXABAN 5 MG TABLET PO SCH (21:39)
[2018-02-15] MEDS: ATORVASTATIN CA 10 MG TABLET (FP) PO SCH (21:39)
[2018-02-16] MEDS: INSULIN SLIDING SCALE (NOVOLOG) 1 VIAL SQ SCH ×4 (06:18→22:11)
[2018-02-16] MEDS ORDERED: POLYETHYLENE GLYCOL 3350 119 GM BTL PO ONE (09:13)
[2018-02-16] MEDS ORDERED: SENNOSIDES 8.6MG TABLET (FP) PO PRN (09:14)
--- NOTE | 2018-02-16 09:15 | PN ---
Physical Exam: SUBJECTIVE: Patient seen and examined at the bedside. Denies pain, denies shortness of breath or chest pain. OBJECTIVE: await repeat blood cultures, pending organism on BC bottle likely contaminant, await preliminary BC before discharging patient. Vital Signs Period Temp Pulse Resp BP Sys/Garcia Pulse Ox Last 24 Hr 98.1 F-99.7 F 51-91 18-22 126-149/68-100 95-97 GENERAL: The patient is awake, alert, and fully oriented, in no acute distress. HEAD: Normal with no signs of trauma. EYES: PERRL, extraocular movements intact, sclera anicteric, conjunctiva clear. No ptosis. ENT: Ears normal, nares patent, oropharynx clear without exudates, moist mucous membranes. NECK: Trachea midline, full range of motion, supple. LUNGS: Breath sounds equal, clear to auscultation bilaterally, no wheezes, no crackles, no accessory muscle use. HEART: Regular rate and rhythm, S1, S2 without murmur, rub or gallop. ABDOMEN: Soft, nontender, nondistended, normoactive bowel sounds, no guarding, no rebound, no hepatosplenomegaly, no masses. EXTREMITIES: left lower leg from knee down with non pitting edema, has + DVT, on Eliquis 5mg BID NEUROLOGICAL: Normal speech, gait not observed. PSYCH: Normal mood, normal affect. SKIN: Warm, dry, normal turgor, no rashes or lesions noted Laboratory Results - last 24 hr 02/15/18 02/15/18 02/15/18 12:03 16:51 21:37 POC Glucometer 88 111 102 02/16/18 06:16 POC Glucometer 90 Active Medications Generic Name Dose Route Start Last Admin Trade Name Freq PRN Reason Stop Dose Admin Acetaminophen 650 mg 02/14/18 15:19 02/15/18 19:32 Tylenol - PO 650 mg Q4H PRN Administration PAIN LEVEL 1 - 3 Amlodipine Besylate 10 mg 02/15/18 10:00 02/15/18 10:11 Norvasc - PO 10 mg DAILY MADELYN Administration Apixaban 5 mg 02/15/18 22:00 02/15/18 21:39 Eliquis - PO 5 mg BID MADELYN Administration Atorvastatin Calcium 10 mg 02/14/18 22:00 02/15/18 21:39 Lipitor - PO 10 mg HS MADELYN Administration Docusate Sodium 100 mg 02/16/18 14:00 Colace - PO TID MADELYN Hydralazine HCl 100 mg 02/14/18 22:00 02/15/18 21:39 Apresoline - PO 100 mg BID MADELYN Administration Insulin Aspart 1 vial 02/14/18 16:30 02/16/18 06:18 Novolog Vial Sliding Scale - SQ Not Given ACHS MADELYN Protocol Labetalol HCl 200 mg 02/14/18 22:00 02/15/18 21:39 Normodyne - PO 200 mg BID MADELYN Administration Polyethylene Glycol 17 gm 02/16/18 09:13 Miralax (For Daily Use) - PO 02/16/18 09:14 ONCE ONE Senna 2 tab 02/16/18 09:14 Senna - PO HS PRN CONSTIPATION Imaging: Vascular Study: extensive DVT on left leg identified on the left common femoral , temporal and popliteal veins as well as the partially visualized greater saphenous vein. ASSESSMENT/PLAN: Patient is a 77 year old male with a significant past medical history of hypertension, HDL, diabetes, prostate cancer, blindness secondary to glaucoma. He presented to the ED on 02/14/18 with left lower ext swelling. Heme/Onc: Left lower extremity DVT: Followed by heme/onc. s/p Lovenox full dose AC. Started on Eliquis 5mg BID. Will need follow up hematology monthly. Seen by surgery: no need for surgical intervention/thrombolysis unless pt unable to tolerate anticoagulation or swelling symptoms progress. Metastatic prostate cancer: CT shows extensive lymphadenopathy with bilateral adrenal nodules and pelvic adenopathy. Patient and encourage to follow up with hematology upon discharge for further treatment options as well as likely increasing Eliquis. ID Rule out bacteremia positive blood culture bottle on micro labs, repeat blood cultures pending. Await preliminary results prior to discharge. Afebrile, WBC stable. No signs of infection. Card: Hypertension: Controlled on Norvasc 10mg daily, labetalol 200mg bid, hydralazine 100mg bid Endocrine: Diabetes: BGMs ac/hs with Novolog coverage fen tolerating PO monitor electrolytes diabetic diet prophy on eliquis full code Visit type - Emergency Visit Emergency Visit: Yes ED Registration Date: 02/14/18 Care time: The patient presented to the Emergency Department on the above date and was hospitalized for further evaluation of their emergent condition. - New Patient This patient is new to me today: Yes Date on this admission: 02/16/18 - Critical Care Critical Care patient: No - Discharge Referral Referred to [facility] Med P.C.: No
[2018-02-16] MEDS ORDERED: PT OWN MED DRAWER 7, Y5N ONE (10:05)
[2018-02-16] MEDS: hydrALAZINE HCL 50 MG TABLET (FP) PO SCH ×2 (10:27→22:11)
[2018-02-16] MEDS: LABETALOL HCL 200 MG TABLET (FP) PO SCH ×2 (10:27→22:11)
[2018-02-16] MEDS: amLODIPine BESYLATE 10 MG TABLET (FP) PO SCH (10:27)
[2018-02-16] MEDS: APIXABAN 5 MG TABLET PO SCH ×2 (10:28→22:11)
[2018-02-16] MEDS: DOCUSATE SODIUM 100 MG CAPSULE (FP) PO SCH ×2 (15:20→22:11)
[2018-02-16] MEDS ORDERED: INSULIN (NOVOLOG) ASPART 100 UNITS/ML 10ML VIAL ONE (21:58)
[2018-02-16] MEDS: ATORVASTATIN CA 10 MG TABLET (FP) PO SCH (22:11)
[2018-02-17] MEDS: DOCUSATE SODIUM 100 MG CAPSULE (FP) PO SCH (06:34)
[2018-02-17] MEDS: INSULIN SLIDING SCALE (NOVOLOG) 1 VIAL SQ SCH (06:34)
--- NOTE | 2018-02-17 08:57 | DS ---
Physical Exam: SUBJECTIVE: Patient seen and examined at the bedside. Feels well, in no acute distress. Denies leg pain, headaches, chest pain or shortness of breath. State he feels well. Wants to go home. OBJECTIVE: left leg edema unchanged from yesterdays assessment Discussed with daughter the importance of follow up with hematology, daughter states she will make an appointment today for follow up with Dr. Clinton. Vital Signs Period Temp Pulse Resp BP Sys/Gracia Pulse Ox Last 24 Hr 98 F-99.1 F 45-97 18-22 119-156/56-102 97-97 PHYSICAL EXAM GENERAL: The patient is awake, alert, and fully oriented, in no acute distress. HEAD: Normal with no signs of trauma. EYES: PERRL, extraocular movements intact, sclera anicteric, conjunctiva clear. No ptosis. ENT: Ears normal, nares patent, oropharynx clear without exudates, moist mucous membranes. NECK: Trachea midline, full range of motion, supple. LUNGS: Breath sounds equal, clear to auscultation bilaterally, no wheezes, no crackles, no accessory muscle use. HEART: Regular rate and rhythm, S1, S2 without murmur, rub or gallop. ABDOMEN: Soft, nontender, nondistended, normoactive bowel sounds, no guarding, no rebound, no hepatosplenomegaly, no masses. EXTREMITIES: left lower leg from knee down with non pitting edema, has + DVT, on Eliquis 5mg BID NEUROLOGICAL: Normal speech, gait not observed. PSYCH: Normal mood, normal affect. SKIN: Warm, dry, normal turgor, no rashes or lesions noted LABS Laboratory Results - last 24 hr 02/16/18 02/16/18 02/16/18 12:11 17:52 22:09 POC Glucometer 103 110 132 02/17/18 06:31 POC Glucometer 94 HOSPITAL COURSE: Date of Admission:02/14/18 Date of Discharge: 02/17/18 Imaging: Vascular Study: extensive DVT on left leg identified on the left common femoral , temporal and popliteal veins as well as the partially visualized greater saphenous vein. Patient is a 77 year old male with a significant past medical history of hypertension, HDL, diabetes, prostate cancer, blindness secondary to glaucoma. He presented to the ED on 02/14/18 with left lower ext swelling. Heme/Onc: Left lower extremity DVT: Pt to be followed by heme/onc outpatient in 4 weeks. s/p Lovenox full dose AC. Now on Eliquis 5mg BID. Will need follow up hematology monthly. Seen by surgery: no need for surgical intervention/ thrombolysis unless pt unable to tolerate anticoagulation or swelling symptoms progress. Left leg swelling unchanged from yesterday. Patient encouraged to elevated left leg on 2-3 pillows. Metastatic prostate cancer: CT shows extensive lymphadenopathy with bilateral adrenal nodules and pelvic adenopathy. Patient and encourage to follow up with hematology upon discharge for further treatment options as well as likely increasing Eliquis. ID Rule out bacteremia, blood culture preliminary negative. No signs of infection. Card: Hypertension: Controlled on Norvasc 10mg daily, labetalol 200mg bid, hydralazine 100mg bid Endocrine: Diabetes: resume home medications Minutes to complete discharge: 60 Discharge Summary Reason For Visit: DEEP VEIN THROMBOSIS Current Active Problems DVT (deep venous thrombosis) (Acute) Hyperproteinemia (Acute) Lymphadenopathy, retroperitoneal (Acute) Prostate cancer (Acute) Condition: Guarded - Instructions Diet, Activity, Other Instructions: Mr Cavazos: You were admitted on 02/14/2018 with a left leg deep vein thrombosis (blood clot on your left leg). You were started on Eliquis 5mg twice per day. This medication has been called into your pharmacy. Please follow up with Dr. Clinton in his office ([phone]) within [address] Clinton will conduct further assessments and monitor your response to the Eliquis. Please to not skip doses with Eliquis. Eliquis is an anticoagulant for the treatment of venous thromboembolic events Please call me with any questions you have. Please follow up with Dr. Clinton, it is important that you do so. Sarah Grimm, ANNMARIE [facility] @ [facility] [phone] Referrals: Arturo Nicholas MD [Staff Physician] - Neptali Clinton MD [Staff Physician] - (([phone] [email or web address]) call for follow up appointment.) Disposition: HOME - Home Medications Comprehensive Discharge Medication List: Ambulatory Orders Labetalol HCl 200 mg PO BID 08/17/12 Simvastatin 20 mg PO DAILY 04/01/12 Amlodipine Besylate [Norvasc -] 10 mg PO DAILY #0 tablet 04/06/12 Hydralazine HCl 100 mg PO BID #0 tablet 04/06/12 Glipizide 5 mg PO BID 02/08/18 Metformin HCl [Glucophage] 500 mg PO BID 02/08/18 Apixaban [Eliquis -] 5 mg PO BID #60 tablet 02/15/18 Docusate Sodium [Colace -] 100 mg PO TID #120 capsule 02/16/18 This patient is new to me today: No Emergency Visit: Yes ED Registration Date: 02/14/18 Care time: The patient presented to the Emergency Department on the above date and was hospitalized for further evaluation of their emergent condition. Critical Care patient: No - Discharge Referral Referred to [facility] Med P.C.: No
[2018-02-17] MEDS ORDERED: PT OWN MED DRAWER 7, Y5N ONE (09:41)
[2018-02-17 10:07] VITALS: BP 157/86; PULSE 68; TEMP 98.6
[2018-02-17] MEDS: LABETALOL HCL 200 MG TABLET (FP) PO SCH (10:08)
[2018-02-17] MEDS: amLODIPine BESYLATE 10 MG TABLET (FP) PO SCH (10:08)
[2018-02-17] MEDS: hydrALAZINE HCL 50 MG TABLET (FP) PO SCH (10:08)
[2018-02-17] MEDS: APIXABAN 5 MG TABLET PO SCH (10:09)
== END 2018-02-17 10:58 | disposition home or self-care (01) ==
LOC: JER 08:59 → JERBED 13:19 → J5S 17:15
PROVIDERS: ADMIT Internal Medicine; ATTEND Nurse Practitioner Family
PROC: 3E033NZ Introduction of Analgesics, Hypnotics, Sedatives into Peripheral Vein, Percutaneous Approach (ICD-10-PCS; principal; 2018-02-14)
PROC: 3E013GC Introduction of Other Therapeutic Substance into Subcutaneous Tissue, Percutaneous Approach (ICD-10-PCS; 2018-02-14)
DX: I82.412 Acute embolism and thrombosis of left femoral vein (principal); C61 Malignant neoplasm of prostate; I10 Essential (primary) hypertension; E78.5 Hyperlipidemia, unspecified; E11.9 Type 2 diabetes mellitus without complications; H54.3 Unqualified visual loss, both eyes; R59.0 Localized enlarged lymph nodes; E88.09 Other disorders of plasma-protein metabolism, not elsewhere classified; Z79.01 Long term (current) use of anticoagulants
CPT/HCPCS: 36415; 74176-TC; 80053; 82962; 83880; 85025; 87040; 87186; 93005; 93010; 93971-TC; 96372; 96374; 99283-25; G0378; J0131

== ENCOUNTER 2018-10-04 12:48 | Emergency (ER) | payer OTHER ==
[2018-10-04 13:13] VITALS: BMI 29.6
--- NOTE | 2018-10-04 13:49 | PDOC ---
History of Present Illness - General History Source: Patient - History of Present Illness Timing/Duration: reports: getting worse <Kyleigh Muhammad - Last Filed: 10/04/18 14:20> <Ashley Hayward - Last Filed: 10/04/18 14:56> - General Chief Complaint: Penile Drainage Stated Complaint: SICK Time Seen by Provider: 10/04/18 13:40 Past History - Past Medical History Cancer: (Prostate CA) CVA: (2007) COPD: No DVT: No Diabetes: Yes HTN: Yes Hypercholesterolemia: Yes - Immunization History Immunization Up to Date: Yes - Suicide/Smoking/Psychosocial Hx Smoking Status: No Smoking History: Never smoked Have you smoked in the past 12 months: No Number of Cigarettes Smoked Daily: 0 If you are a former smoker, when did you quit?: 50 years ago Information on smoking cessation initiated: No Hx Alcohol Use: No Drug/Substance Use Hx: No Substance Use Type: None Hx Substance Use Treatment: No <Kyleigh Muhammad - Last Filed: 10/04/18 14:20> <Ashley Hayward - Last Filed: 10/04/18 14:56> - Past Medical History Allergies/Adverse Reactions: Allergies Allergy/AdvReac Type Severity Reaction Status Date / Time No Known Allergies Allergy Verified 02/14/18 09:00 Home Medications: Ambulatory Orders Labetalol HCl 200 mg PO BID 04/01/12 Simvastatin 20 mg PO DAILY 04/01/12 Amlodipine Besylate [Norvasc -] 10 mg PO DAILY #0 tablet 04/06/12 Hydralazine HCl 100 mg PO BID #0 tablet 04/06/12 Glipizide 5 mg PO BID 02/08/18 Metformin HCl [Glucophage] 500 mg PO BID 02/08/18 Apixaban [Eliquis -] 5 mg PO BID #60 tablet 02/17/18 Docusate Sodium [Colace -] 100 mg PO TID capsule 02/17/18 Review of Systems - Review of Systems Constitutional: No: Fever ABD/GI: No: Nausea, Vomiting, Abdominal cramping : Yes: Other (phimosis). No: Burning, Dysuria, Discharge, Flank Pain, Hematuria <Kyleigh Muhammad - Last Filed: 10/04/18 14:20> *Physical Exam - Vital Signs Last Vital Signs Temp Pulse Resp BP Pulse Ox 98.3 F 102 H 20 126/76 98 10/04/18 13:09 10/04/18 13:09 10/04/18 13:09 10/04/18 13:09 10/04/18 13:09 - Physical Exam General Appearance: Yes: Appropriately Dressed. No: Apparent Distress HEENT: positive: Normal Voice Neck: positive: Supple Respiratory/Chest: negative: Respiratory Distress Gastrointestinal/Abdominal: positive: Soft. negative: Tender Male Genitalia: positive: other (phimosis, unable to visualize urethra, no discharge or rash) Integumentary: positive: Dry, Warm Neurologic: positive: Fully Oriented, Alert, Normal Mood/Affect <Kyleigh Muhammad - Last Filed: 10/04/18 14:20> - Vital Signs Last Vital Signs Temp Pulse Resp BP Pulse Ox 98.1 F 89 16 122/76 98 10/04/18 14:49 10/04/18 14:49 10/04/18 14:49 10/04/18 14:49 10/04/18 14:49 <Ashley Hayward - Last Filed: 10/04/18 14:56> Moderate Sedation - Procedure Monitoring Vital Signs: Procedure Monitoring Vital Signs Temperature 98.3 F 10/04/18 13:09 Pulse Rate 102 H 10/04/18 13:09 Respiratory Rate 20 10/04/18 13:09 Blood Pressure 126/76 10/04/18 13:09 O2 Sat by Pulse Oximetry (%) 98 10/04/18 13:09 <Kyleigh Muhammad - Last Filed: 10/04/18 14:20> - Procedure Monitoring Vital Signs: Procedure Monitoring Vital Signs Temperature 98.1 F 10/04/18 14:49 Pulse Rate 89 10/04/18 14:49 Respiratory Rate 16 10/04/18 14:49 Blood Pressure 122/76 10/04/18 14:49 O2 Sat by Pulse Oximetry (%) 98 10/04/18 14:49 <Ashley Hayward - Last Filed: 10/04/18 14:56> ED Treatment Course - ADDITIONAL ORDERS Additional order review: Laboratory Results 10/04/18 14:31 POC Glucometer 52 10/04/18 14:31 POC Glucometer 52 <Ashley Hayward - Last Filed: 10/04/18 14:56> Medical Decision Making - Medical Decision Making 10/04/18 13:44 77 yo male, h/o NIDDM, HTN, HLD, prostate ca (~20 years ago-refuses treatment), blindness d/t glaucoma, here w/ complaints. Pt reports that over the past several months, he has noticed that it is getting harder and harder for him to retract foreskin over glans penis and having to use force to do so. Was able to retract forskin at all, this am. States he is able to urinate. Denies pain, discharge, itching, hematuria, nausea, vomiting, fever or chills. For unclear reasons, has not seek medical evaluation for this in the past See exam Progressive phimosis Continues to be able to urinate No discharge on exam H/o DM -FS -will discuss management and f/u with 10/04/18 14:[address] Lamb of urology who states patient should follow-up this week. States patient most likely will need a dorsal incision. Finger stick 51. Pt denies weakness/dizziness at this time and reports feeling well. Not on insulin and did not take any of his dm meds today. Reports not eating lunch today. Pt given bag of sandwich and juice at this time. Do not see for further intervention in ED <Kyleigh Muhammad - Last Filed: 10/04/18 14:20> *DC/Admit/Observation/Transfer <Kyleigh Muhammad - Last Filed: 10/04/18 14:20> - Attestations Physician Attestion: I reviewed the case with the mid-level practitioner and agree with the mid- level practitioner's assessment, diagnosis and disposition. <Ashley Hayward - Last Filed: 10/04/18 14:56> Diagnosis at time of Disposition: Phimosis - Discharge Dispostion Disposition: HOME Condition at time of disposition: Stable - Referrals Referrals: Romero Lamb MD., MD [Staff Physician] - - Patient Instructions Printed Discharge Instructions: Phimosis Additional Instructions: You have a condition called phimosis, which is when it is difficult to retract the foreskin over the penis to expose the urethra, the opening through which you urinate Treatment for this as possible creating an incision in the foreskin and you will need to follow up with urology for this. The ED staff spoke to Dr. Lamb of urology who states you should call the office today to make an appointment to be seen this week
[2018-10-04 14:52] VITALS: BP 122/76; PULSE 89; TEMP 98.1
== END 2018-10-04 14:52 | disposition home or self-care (01) ==
LOC: JER 12:48
DX: N47.1 Phimosis (principal); I10 Essential (primary) hypertension; E78.00 Pure hypercholesterolemia, unspecified; E11.9 Type 2 diabetes mellitus without complications; Z79.84 Long term (current) use of oral hypoglycemic drugs; Z85.46 Personal history of malignant neoplasm of prostate; Z86.73 Personal history of transient ischemic attack (TIA), and cerebral infarction without residual deficits
CPT/HCPCS: 82962; 99282-25